=== PATIENT | male | born 1970 | race African-American/Black ===

== ENCOUNTER 2018-10-07 11:34 | Emergency (ER) | payer OTHER, SELFPAY ==
[2018-10-07] MEDS ORDERED: NA CHLORIDE 0.9% 1,000 ML ONE (12:10)
--- NOTE | 2018-10-07 12:19 | RAD REPORT ---
EXAM DESCRIPTION: RAD - Chest Single View - 10/07/2018 12:08 pm CLINICAL HISTORY: Dyspnea COMPARISON: None. TECHNIQUE: AP portable chest image was obtained 1206 hours . FINDINGS: Lungs are clear. Heart and vasculature are normal. No measurable pleural effusion and no p neumothorax. No acute bony abnormality seen. No acute aortic findings suspected. IMPRESSION: No acute cardiopulmonary process.
[2018-10-07 12:48] LABS: Absolute Lymphocytes (CBC) 1.2 K/uL (0.7-4.9); Absolute Monocytes 0.5 K/uL (0.1-1.3); Absolute Neutrophil 3.6 K/uL (1.8-8.0); Eosinophils % 5.7 % (0-4.4); Hematocrit 40.3 % (39.6-49.0); Lymphocytes % 21.8 % (15.3-44.8); MPV 9.1 fL (7.6-11.3); Monocytes % 8.2 % (3.3-12.3); RBC Red Blood Cell Count 4.58 M/uL (4.33-5.43)
[2018-10-07 12:49] LABS: Protime INR 1.15
[2018-10-07 13:06] LABS: BUN Blood Urea Nitrogen 12 mg/dL (7-18); Bicarbonate 28 mmol/L (21-32); Creatine Phosphokinase 376 U/L (39-308); Glucose Level 110 mg/dL (74-106); NT PRO-BNP 15 pg/mL (<125); Potassium 3.3 mmol/L (3.5-5.1); Sodium Level 141 mmol/L (136-145); Troponin (Emerg Dept Use Only) < 0.02 ng/mL (0.0-0.045)
--- NOTE | 2018-10-07 13:51 | EDPHYS ---
Physician Documentation [facility] Name: Toya Subramanian Age: 47 yrs Sex: Male : 1970 Arrival Date: 10/07/2018 Time: 11:35 Bed 6 Private MD: ED Physician Cyrus Linder HPI: 10/07 13:46 This 47 yrs old Black Male presents to ER via EMS with complaints of Shortness Of jr8 Breath. 13:46 Onset: The symptoms/episode began/occurred acutely, today. Duration: The symptoms are jr8 continuous, but are markedly better than the original presentation. The patient's shortness of breath is aggravated by exertion. Associated signs and symptoms: Pertinent positives: chest pain. Severity of symptoms: At their worst the symptoms were moderate in the emergency department the symptoms have resolved. The patient has not experienced similar symptoms in the past. The patient has not recently seen a physician. Patient stated that he was in a slick suit and SCBA along with harness going though a structure. Stated that while climbing everything felt tight and was giving him chest tightness and shortness of breath. Stated that it was also very hot. When symptoms started he went back down and took everything off. EMS arrived but felt much better. No asymptomatic at this time . Historical: - Allergies: 11:38 No Known Allergies; hj - Home Meds: 11:38 Lisinopril Oral [Active]; hj - PMHx: 11:38 Hypertension; Sleep Apnea; hj - PSHx: 11:38 None; hj - Immunization history:: Adult Immunizations not up to date. - Social history:: Smoking status: Patient/guardian denies using tobacco, Patient uses alcohol. - Ebola Screening: : Patient negative for fever greater than or equal to 101.5 degrees Fahrenheit, and additional compatible Ebola Virus Disease symptoms Patient denies exposure to infectious person Patient denies travel to an Ebola-affected area in the 21 days before illness onset. ROS: 13:46 Eyes: Negative for injury, pain, redness, and discharge, ENT: Negative for injury, jr8 pain, and discharge, Neck: Negative for injury, pain, and swelling, Abdomen/GI: Negative for abdominal pain, nausea, vomiting, diarrhea, and constipation, Back: Negative for injury and pain, MS/Extremity: Negative for injury and deformity, Skin: Negative for injury, rash, and discoloration, Neuro: Negative for headache, weakness, numbness, tingling, and seizure. 13:46 Cardiovascular: Positive for chest pain, Negative for edema, orthopnea, palpitations, paroxysmal nocturnal dyspnea. 13:46 Respiratory: Positive for shortness of breath, Negative for cough, dyspnea on exertion, sputum production, wheezing. Exam: 13:46 Eyes: Pupils equal round and reactive to light, extra-ocular motions intact. Lids and jr8 lashes normal. Conjunctiva and sclera are non-icteric and not injected. Cornea within normal limits. Periorbital areas with no swelling, redness, or edema. ENT: Nares patent. No nasal discharge, no septal abnormalities noted. Tympanic membranes are normal and external auditory canals are clear. Oropharynx with no redness, swelling, or masses, exudates, or evidence of obstruction, uvula midline. Mucous membranes moist. Neck: Trachea midline, no thyromegaly or masses palpated, and no cervical lymphadenopathy. Supple, full range of motion without nuchal rigidity, or vertebral point tenderness. No Meningismus. Cardiovascular: Regular rate and rhythm with a normal S1 and S2. No gallops, murmurs, or rubs. Normal PMI, no JVD. No pulse deficits. Respiratory: Lungs have equal breath sounds bilaterally, clear to auscultation and percussion. No rales, rhonchi or wheezes noted. No increased work of breathing, no retractions or nasal flaring. Abdomen/GI: Soft, non-tender, with normal bowel sounds. No distension or tympany. No guarding or rebound. No evidence of tenderness throughout. Back: No spinal tenderness. No costovertebral tenderness. Full range of motion. Skin: Warm, dry with normal turgor. Normal color with no rashes, no lesions, and no evidence of cellulitis. MS/ Extremity: Pulses equal, no cyanosis. Neurovascular intact. Full, normal range of motion. Neuro: Awake and alert, GCS 15, oriented to person, place, time, and situation. Cranial nerves II-XII grossly intact. Motor strength 5/5 in all extremities. Sensory grossly intact. Cerebellar exam normal. Normal gait. 13:50 ECG was reviewed by the Attending Physician. 8 Vital Signs: 11:39 BP 137 / 91; Pulse 78; Resp 18; Temp 98.2(O); Pulse Ox 98% on R/A; Weight 136.08 kg; hj Height 6 ft. 0 in. (182.88 cm); Pain 0/10; 12:30 BP 135 / 90; Pulse 81; Resp 18; Pulse Ox 100% on R/A; hj 13:25 BP 132 / 89; Pulse 85; Resp 18; Pulse Ox 96% on R/A; hj 14:09 BP 130 / 85; Pulse 80; Resp 18; Pulse Ox 100% on R/A; hj 11:39 Body Mass Index 40.69 (136.08 kg, 182.88 cm) MDM: 11:51 Patient medically screened. [facility] 13:46 Data reviewed: vital signs, nurses notes, lab test result(s), EKG, radiologic studies, [facility] plain films. Data interpreted: Pulse oximetry: on room air is 96 %. Interpretation: normal. Counseling: I had a detailed discussion with the patient and/or guardian regarding: the historical points, exam findings, and any diagnostic results supporting the discharge/admit diagnosis, lab results, radiology results, the need for outpatient follow up, a family practitioner, to return to the emergency department if symptoms worsen or persist or if there are any questions or concerns that arise at home. Response to treatment: the patient's symptoms have resolved after treatment, patient is well hydrated. 10/07 11:52 Order name: Basic Metabolic Panel; Complete Time: 13:10/07 11:52 Order name: CBC with Diff; Complete Time: 12:10/07 11:52 Order name: NT PRO-BNP; Complete Time: 13:10/07 11:52 Order name: PT-INR; Complete Time: 12:56 10/07 11:52 Order name: Troponin (emerg Dept Use Only); Complete Time: 13:10/07 11:52 Order name: CK; Complete Time: 13: 10/07 11:52 Order name: XRAY Chest (1 view); Complete Time: 12:24 10/07 11:52 Order name: EKG; Complete Time: 11:53 10/07 11:52 Order name: Cardiac monitoring; Complete Time: 12:02 10/07 11:52 Order name: EKG - Nurse/Tech; Complete Time: 12:02 jr8 05/26 11:52 Order name: IV Saline Lock; Complete Time: :10/07 11:52 Order name: Labs collected and sent; Complete Time: :10/07 11:52 Order name: O2 Per Protocol; Complete Time: :10/07 11:52 Order name: O2 Sat Monitoring; Complete Time: EC:50 Rate is 75 beats/min. Rhythm is regular, Normal Sinus Rhythm. QRS Neptune is Normal. [place] jr8 interval is normal at 184 msec. QRS interval is normal at 96 msec. QT interval is prolonged at 482 msec. No Q waves. T waves are Normal. No ST changes noted. Clinical impression: Normal ECG and No evidence of ischemia. Interpreted by me. Reviewed by me. Administered Medications: 12:04 Drug: NS 0.9% 1000 ml Route: IV; Rate: 1000 ml; Site: left forearm; aa5 13:30 Follow up: IV Status: Completed infusion; IV Intake: 1000ml hj Disposition: 10/07/18 13:50 Discharged to Home. Impression: Heat fatigue, transient, Shortness of breath. - Condition is Stable. - Discharge Instructions: Dehydration, Adult, Shortness of Breath, Fatigue. - Medication Reconciliation Form, Thank You Letter, Antibiotic Education, Prescription Opioid Use form. - Follow up: Private Physician; When: 2 - 3 days; Reason: Recheck today's complaints, Continuance of care, Re-evaluation by your physician. - Problem is new. - Symptoms have improved. Addendum: 10/09/2018 08:06 Co-signature as Attending Physician, Cyrus Linder MD I agree with the assessment and k dr plan of care. Signatures: Dispatcher [employer] EDDE Cyrus Linder MD MD [facility] Denisa Mckeon RN RN aa5 Juan Morales PA PA jr8 Hector Ponce RN RN hj Corrections: (The following items were deleted from the chart) 10/07 14:10 13:50 10/07/2018 13:50 Discharged to Home. Impression: Heat fatigue, transient; hj Shortness of breath. Condition is Stable. Forms are Medication Reconciliation Form, Thank You Letter, Antibiotic Education, Prescription Opioid Use. Follow up: Private Physician; When: 2 - 3 days; Reason: Recheck today's complaints, Continuance of care, Re-evaluation by your physician. Problem is new. Symptoms have improved. jr8
--- NOTE | 2018-10-07 13:51 | ER ---
Nurse's Notes [facility] Name: Toya Subramanian Age: 47 yrs Sex: Male : 1970 Arrival Date: 10/07/2018 Time: 11:35 Bed 6 Private MD: Diagnosis: Heat fatigue, transient;Shortness of breath Presentation: 10/07 11:35 Presenting complaint: EMS states: pt, working out [employer], on a shutdown, been working hj under a warm environment; been complaining of SOB; and been sweating a lot; reports feeling dehydrated; 20 g IV on L AC with NS 1L infusing; BP- 174/115; BGL- 123;. Transition of care: patient was not received from another setting of care. Onset of symptoms was October 07, 2018. Risk Assessment: Do you want to hurt yourself or someone else? Patient reports no desire to harm self or others. Initial Sepsis Screen: Does the patient meet any 2 criteria? No. Patient's initial sepsis screen is negative. Does the patient have a suspected source of infection? No. Patient's initial sepsis screen is negative. Care prior to arrival: None. 11:35 Method Of Arrival: EMS: [facility] 11:35 Acuity: GINNY 3 hj Historical: - Allergies: 11:38 No Known Allergies; hj - Home Meds: 11:38 Lisinopril Oral [Active]; hj - PMHx: 11:38 Hypertension; Sleep Apnea; hj - PSHx: 11:38 None; hj - Immunization history:: Adult Immunizations not up to date. - Social history:: Smoking status: Patient/guardian denies using tobacco, Patient uses alcohol. - Ebola Screening: : Patient negative for fever greater than or equal to 101.5 degrees Fahrenheit, and additional compatible Ebola Virus Disease symptoms Patient denies exposure to infectious person Patient denies travel to an Ebola-affected area in the 21 days before illness onset. Screenin:40 Abuse screen: Denies threats or abuse. Denies injuries from another. Nutritional hj screening: No deficits noted. Tuberculosis screening: No symptoms or risk factors identified. Fall Risk None identified. Assessment: 11:40 General: Appears in no apparent distress. comfortable, Behavior is calm, cooperative, hj appropriate for age. Pain: Denies pain. Neuro: Level of Consciousness is awake, alert, obeys commands, Oriented to person, place, time, situation, Appropriate for age. Cardiovascular: Capillary refill < 3 seconds Patient's skin is warm and dry. Respiratory: Airway is patent Respiratory effort is even, unlabored, Respiratory pattern is regular, symmetrical. GI: No signs and/or symptoms were reported involving the gastrointestinal system. : No signs and/or symptoms were reported regarding the genitourinary system. EENT: No signs and/or symptoms were reported regarding the EENT system. Derm: No signs and/or symptoms reported regarding the dermatologic system. Musculoskeletal: No signs and/or symptoms reported regarding the musculoskeletal system. Vital Signs: 11:39 BP 137 / 91; Pulse 78; Resp 18; Temp 98.2(O); Pulse Ox 98% on R/A; Weight 136.08 kg; hj Height 6 ft. 0 in. (182.88 cm); Pain 0/10; 12:30 BP 135 / 90; Pulse 81; Resp 18; Pulse Ox 100% on R/A; hj 13:25 BP 132 / 89; Pulse 85; Resp 18; Pulse Ox 96% on R/A; hj 14:09 BP 130 / 85; Pulse 80; Resp 18; Pulse Ox 100% on R/A; hj 11:39 Body Mass Index 40.69 (136.08 kg, 182.88 cm) hj ED Course: 11:35 Patient arrived in ED. jr8 11:35 Hector Ponce, RN is Primary Nurse. hj 11:37 Triage completed. hj 11:40 Arm band placed on right wrist. hj 11:41 Patient has correct armband on for positive identification. Placed in gown. Bed in low hj position. Call light in reach. Side rails up X 1. 11:51 Juan Morales PA is PHCP. jr8 11:51 Cyrus Linder MD is Attending Physician. jr8 12:00 Initial lab(s) drawn, by me, sent to lab. aa5 12:02 EKG done, by ED staff, reviewed by Juan BURNHAM. jb1 12:06 XRAY Chest (1 view) In Process Unspecified. EDMS 14:08 No provider procedures requiring assistance completed. IV discontinued, intact, hj bleeding controlled, No redness/swelling at site. Pressure dressing applied. Administered Medications: 12:04 Drug: NS 0.9% 1000 ml Route: IV; Rate: 1000 ml; Site: left forearm; aa5 13:30 Follow up: IV Status: Completed infusion; IV Intake: 1000ml hj Intake: 13:30 IV: 1000ml; Total: 1000ml. heike Outcome: 13:50 Discharge ordered by MD. uribe 14:09 Discharged to home ambulatory. heike 14:09 Condition: stable 14:09 Discharge instructions given to patient, Instructed on discharge instructions, follow up and referral plans. Demonstrated understanding of instructions, follow-up care. 14:10 Patient left the ED. heike Signatures: Dispatcher [employer] EDMS Antonio Vicente jb1 Denisa Mckeon, RN RN aa5 Juan Morales PA PA jr8 Hector Ponce, RN RN
--- NOTE | 2018-10-08 07:55 | EKG ---
Test Date: 2018-10-07 Test Time: 11:58:40 Line Assembler: HERMINIA MEASUREMENT RESULTS: Intervals: Rate: 75 [place]: 184 QRSD: 96 QT: 432 QTc: 482 [place]: P: 33 [place]: 184 QRS: 61 T: 56 INTERPRETIVE STATEMENTS: Normal sinus rhythm Prolonged QT Abnormal ECG Compared to ECG 05/13/2011 04:22:47 Prolonged QT interval now present T-wave abnormality no longer present Possible ischemia no longer present Electronically Signed On 10-08-18 07:53:46 CDT by Donavan Cardona
== END 2018-10-07 14:10 | disposition home or self-care (01) ==
LOC: ER 11:34
DX: T67.6XXA Heat fatigue, transient, initial encounter (principal); R06.02 Shortness of breath; I10 Essential (primary) hypertension
CPT/HCPCS: 36415; 71045; 80048; 82550; 83880; 84484; 85025; 85610; 93005; 96360; 99284; J7030

== ENCOUNTER 2022-03-18 00:28 | Inpatient (IN) | payer OTHER, SELFPAY ==
--- OUTSIDE RECORDS SUMMARY | 2022-03-18 00:30 | XMS REPORT | Continuity of Care Document ---
:1970 Author Organization [facility] t Address [address] [place] [address] Care Team Providers Name Role Phone Jody Lang Primary Care Physician [phone] Problems This patient has no known problems. Allergies, Adverse Reactions, Alerts This patient has no known allergies or adverse reactions. Medications Ordered Filled Start Stop Current Ordering Indication Dosage Frequency Signature Comments Components Source Medication Medication Date Date Medication? Clinician (SIG) Name Name TAKE 1 2021-05 No 25 TABLET 0-24 EVERY 00:00: MORNING. 00 Dose 2021-0 No Unknown 4-22 00:00: 00 Dose 2021-0 No Unknown 4-22 00:00: 00 Dose 2-0 No Unknown 4-22 00:00: 00 Dose 2-0 No Unknown 4-22 00:00: 00 Dose 2-0 No Unknown 4-22 00:00: 00 Dose 2-0 No Unknown 4-22 00:00: 00 Dose 2-0 No Unknown 4-22 00:00: 00 Dose 2021-0 No Unknown 4-22 00:00: 00 Dose 2-0 No Unknown 4-22 00:00: 00 Dose 2-0 No Unknown 4-22 00:00: 00 Dose 2-0 No Unknown 4-22 00:00: 00 Dose 2022-0 No Unknown 4-22 00:00: 00 Dose 2-0 No Unknown 4-22 00:00: 00 Dose 2-0 No Unknown 4-22 00:00: 00 Dose 2-0 No Unknown 4-22 00:00: 00 Dose 2-0 No Unknown 4-22 00:00: 00 Dose 2-0 No Unknown 4-22 00:00: 00 Dose 2-0 No Unknown 4-22 00:00: 00 Dose 2022-0 No Unknown 4-22 00:00: 00 Dose 2022-0 No Unknown 4-22 00:00: 00 Dose 2022-0 No Unknown 4-18 00:00: 00 Dose 2022-0 No Unknown 4-18 00:00: 00 Dose 2022-0 No Unknown 4-18 00:00: 00 Dose 2022-0 No Unknown 4-18 00:00: 00 Dose 2022-0 No Unknown 4-18 00:00: 00 Dose 2022-0 No Unknown 4-18 00:00: 00 Dose 2022-0 No Unknown 4-18 00:00: 00 Dose 2022-0 No Unknown 4-18 00:00: 00 glimepiride 2-0 No 1mg 4 mg tablet 3-05 00:00: 00 atorvastati 2-0 No 1mg n 20 mg 3-05 tablet 00:00: 00 Dose 2022-0 No Unknown 3-04 00:00: 00 Dose 2022-0 No Unknown 3-04 00:00: 00 Dose 2022-0 No Unknown 3-04 00:00: 00 Dose 2022-0 No Unknown 3-04 00:00: 00 Dose 2022-0 No Unknown 3-04 00:00: 00 Dose 2022-0 No Unknown 3-04 00:00: 00 Dose 2022-0 No Unknown 3-04 00:00: 00 Dose 2022-0 No Unknown 3-04 00:00: 00 Dose 2022-0 No Unknown 3-04 00:00: 00 Dose 2022-0 No Unknown 3-04 00:00: 00 Dose 2022-0 No Unknown 3-04 00:00: 00 Dose 2022-0 No Unknown 3-04 00:00: 00 Dose 2022-0 No Unknown 3-04 00:00: 00 Dose 2022-0 No Unknown 3-04 00:00: 00 Dose 2022-0 No Unknown 3-04 00:00: 00 Vital Signs Vital Name Observation Time Observation Value Comments Source BP Systolic 2021-07-16 10:01:00 157 mm[Hg] BP Diastolic 2021-07-16 10:01:00 105 mm[Hg] Weight Measured 2021-07-16 10:01:00 292.80 pounds Height Measured 2021-07-16 10:01:00 71.85 inches Body Temperature 2021-07-16 10:01:00 97.20 degrees Heart Rate 2021-07-16 10:01:00 96.00 /min Respiratory Rate 2021-07-16 10:01:00 Procedures This patient has no known procedures. Plan of Care Planned Activity Planned Date Details Comments Source Goal Plan of Care Note [code = 97298-0] Goal Plan of Care Note [code = 72914-9] Goal Plan of Care Note [code = 38311-3] Goal Plan of Care Note [code = 27125-3] Encounters Start End Encounter Admission Attending Care Care Encounter Source Date/Time Date/Time Type Type Clinicians Facility Department ID 2022-03-07 2022-03-07 Outpatient [id number] 00:00:00 00:00:00 Visit [id number] Results Test Description Test Time Test Comments Results Result Comments Source HEMOGLOBIN A1c 2021-07-17 05:00:27 Test Item Value Reference Range Interpretation Comme nts HEMOGLOBIN A1c (test code = 9.6 % 4.2-5.6 H [employer] 59810) GUIDELINES FOR HGB A1C: PREDIABETES/INC REASED RISK . . . . . . . 5.7-6.4% DIAGNO SIS OF DIABETES . . . . . . . . . >=6.5% WITH CONFIRMATION OR APPROPRIATE SYM PTOMS NOTE: ASSAY MAY BE AFFECTED BY HEM OGLOBINOPATHIES (SICKLE CELL ANEMIA, S- C DISEASE, OTHERS) OR ARTIFICIALLY LO WERED BY DECREASED RED CELL SURVIVAL ( HEMOLYTIC ANEMIAS, BLOOD LOSS, ETC.). CO NSIDER ALTERNATE TESTING OR LABORATORY C ONSULTATION. LIPID [id number] 04:34:34 Test Item Value Reference Range Interpretation Comments CHOLESTEROL (test 162 MG/DL <200 code = 2210) TRIGLYCERIDES (test 188 MG/DL <150 H code = 2232) HDL CHOLESTEROL (test 38 MG/DL >39 L code = 2220) CALC LDL CHOL (test 96 MG/DL <100 NOTE: C ALCULATED LDL code = 2237) IS BASED ON NIMA-HAMILTON METHOD WHICHINCLUDES ADJUSTABLE TRIGLYCERIDE:VL DL CHOLESTEROL RAT IO.THIS FACTOR VARIES B Y MEASURED TRIGLY CERIDE AND NON-HDLCHOL ESTEROL CONCENTRATIONS WITH INCREASED CALCU LATED LDL SEENIN HIGH ER TRIGLYCERIDE OR LOWER NON-HDL SPECIME NS. FOR MOREINFORMATION , SEE CLIENT ANNOUNCE MENT AT [email or web address] RISK RATIO LDL/HDL 2.53 RATIO <3.55 (test code = 2238) COMPREHENSIVE METABOLIC [id number] 04:34:34 Test Item Value Reference Range Interpretation Comments GLUCOSE (test code = 145 MG/DL 70-99 H 2216) BUN (test code = 10 MG/DL 6-20 2207) CREATININE (test 1.08 MG/DL 0.80-1.40 code = 221) eGFR (2020 CKD-EPI) 84 >60 (test code = 87630) ML/MIN/1.73 CALC BUN/CREAT (test 9 RATIO 6-28 code = 2235) SODIUM (test code = 143 MEQ/L 348-946 6204) POTASSIUM (test code 4.0 MEQ/L 3.5-5.4 = 2227) CHLORIDE (test code 102 MEQ/L 95-107 = 2214) CARBON DIOXIDE (test 24 MEQ/L 19-31 code = 2206) CALCIUM (test code = 9.4 MG/DL 8.5-10.5 2208) PROTEIN, TOTAL (test 7.3 G/DL 6.1-8.3 code = 2229) ALBUMIN (test code = 4.5 G/DL 3.5-5.2 2200) CALC GLOBULIN (test 2.8 G/DL 1.9-3.7 code = 2240) CALC A/G RATIO (test 1.6 RATIO 1.0-2.6 code = 2234) BILIRUBIN, TOTAL 0.7 MG/DL See_Comment [Automated message] (test code = 2207) The syste m which generated this result transmitted ref erence range: <=1.2. T he reference range was not used to int erpret this result as normal/abnormal . ALKALINE PHOSPHATASE 131 U/L 40-118 H (test code = 2203) AST (test code = 21 U/L 9-50 2217) ALT (test code = 26 U/L 5-50 UNLESS OTH ERWISE 2218) INDICATED, ALL TESTING PERFORM [facility], [address] [place] [address] [facility] CHELY DIRECTOR: Donnie MARQUEZIA NUMBER [id number] [facility] ACCREDITATION N O. [id number] HEMOGLOBIN [id number] 00:00:00 Test Item Value Reference Range Interpretation Comments HEMOGLOBIN A1c (test code = 85040) 9.6 % HEMOGLOBIN [id number] 00:00:00 Test Item Value Reference Range Interpretation Comments HEMOGLOBIN A1c (test code = 56731) 9.6 % HEMOGLOBIN [id number] 00:00:00 Test Item Value Reference Range Interpretation Comments HEMOGLOBIN A1c (test code = 78110) 9.6 % LIPID [id number] 00:00:00 Test Item Value Reference Range Interpretation Comments CHOLESTEROL (test code = 2210) 162 MG/DL TRIGLYCERIDES (test code = 2232) 188 MG/DL HDL CHOLESTEROL (test code = 2220) 38 MG/DL CALC LDL CHOL (test code = 2237) 96 MG/DL RISK RATIO LDL/HDL (test code = 2.53 RATIO 2238) LIPID [id number] 00:00:00 Test Item Value Reference Range Interpretation Comments CHOLESTEROL (test code = 2210) 162 MG/DL TRIGLYCERIDES (test code = 2232) 188 MG/DL HDL CHOLESTEROL (test code = 2220) 38 MG/DL CALC LDL CHOL (test code = 2237) 96 MG/DL RISK RATIO LDL/HDL (test code = 2.53 RATIO 2238) COMPREHENSIVE METABOLIC [id number] 00:00:00 Test Item Value Reference Range Interpretation Comments GLUCOSE (test code = 2217) 145 MG/DL BUN (test code = 2208) 10 MG/DL CREATININE (test code = 2214) 1.08 MG/DL eGFR (2020 CKD-EPI) (test code 84 ML/MIN/1.73 = 53219) CALC BUN/CREAT (test code = 9 RATIO 2235) SODIUM (test code = 2231) 143 MEQ/L POTASSIUM (test code = 2228) 4.0 MEQ/L CHLORIDE (test code = 2215) 102 MEQ/L CARBON DIOXIDE (test code = 24 MEQ/L 2205) CALCIUM (test code = 2209) 9.4 MG/DL PROTEIN, TOTAL (test code = 7.3 G/DL 2228) ALBUMIN (test code = 2201) 4.5 G/DL CALC GLOBULIN (test code = 2.8 G/DL 2240) CALC A/G RATIO (test code = 1.6 RATIO 223) BILIRUBIN, TOTAL (test code = 0.7 MG/DL 2206) ALKALINE PHOSPHATASE (test 131 U/L code = 220) AST (test code = 2218) 21 U/L ALT (test code = 2219) 26 U/L COMPREHENSIVE METABOLIC [id number] 00:00:00 Test Item Value Reference Range Interpretation Comments GLUCOSE (test code = 2217) 145 MG/DL BUN (test code = 2208) 10 MG/DL CREATININE (test code = 2214) 1.08 MG/DL eGFR (2020 CKD-EPI) (test code 84 ML/MIN/1.73 = 34181) CALC BUN/CREAT (test code = 9 RATIO 2235) SODIUM (test code = 2231) 143 MEQ/L POTASSIUM (test code = 2228) 4.0 MEQ/L CHLORIDE (test code = 2215) 102 MEQ/L CARBON DIOXIDE (test code = 24 MEQ/L 2205) CALCIUM (test code = 2209) 9.4 MG/DL PROTEIN, TOTAL (test code = 7.3 G/DL 2228) ALBUMIN (test code = 2201) 4.5 G/DL CALC GLOBULIN (test code = 2.8 G/DL 2240) CALC A/G RATIO (test code = 1.6 RATIO 2234) BILIRUBIN, TOTAL (test code = 0.7 MG/DL 2206) ALKALINE PHOSPHATASE (test 131 U/L code = 220) AST (test code = 2218) 21 U/L ALT (test code = 2219) 26 U/L
[2022-03-18] MEDS ORDERED: NA CHLORIDE 0.9% 1,000 ML ONE (00:54)
[2022-03-18] MEDS ORDERED: ONDANSETRON 4 MG/2 ML VIAL ONE ×3 (00:54→16:05)
[2022-03-18] MEDS ORDERED: MORPHINE 4 MG/ML SYR ONE (00:54)
[2022-03-18 00:59] LABS: Absolute Lymphocytes (CBC) 1.6 K/uL (0.7-4.9); Lymphocytes % 23.5 % (15.3-44.8); MPV 8.2 fL (7.6-11.3); RBC Red Blood Cell Count 4.78 M/uL (4.33-5.43)
[2022-03-18 01:14] LABS: Albumin 3.6 g/dL (3.4-5.0); Bilirubin Total 0.6 mg/dL (0.2-1.0); Potassium 3.4 mmol/L (3.5-5.1); Protein, Total 7.4 g/dL (6.4-8.2)
--- NOTE | 2022-03-18 03:25 | ER ---
Nurse's Notes [facility] Name: Toya Subramanian Age: 51 yrs Sex: Male : 1970 Arrival Date: 03/18/2022 Time: 00:30 Bed 4 Private MD: Diagnosis: Abdominal pain, unspecified Presentation: 03/18 00:41 Chief complaint: Patient states: he is having severe abdominal pain after drinking bb alcohol tonight he also had the same type of episode last night but the pain only lasted about an hour currently pain is 10/10 denies vomiting or diarrhea. Coronavirus screen: At this time, the client does not indicate any symptoms associated with coronavirus-19. Ebola Screen: No symptoms or risks identified at this time. Initial Sepsis Screen: Does the patient meet any 2 criteria? No. Patient's initial sepsis screen is negative. Does the patient have a suspected source of infection? No. Patient's initial sepsis screen is negative. Risk Assessment: Do you want to hurt yourself or someone else? Patient reports no desire to harm self or others. Onset of symptoms was March 17, 2022. 00:41 Method Of Arrival: Ambulatory bb 00:41 Acuity: GINNY 3 bb Triage Assessment: 01:00 General: Appears in no apparent distress. uncomfortable, obese, Behavior is as6 cooperative. Pain: Complains of pain in umbilical area and left lower quadrant and right lower quadrant. EENT: No deficits noted. Neuro: No deficits noted. Cardiovascular: No deficits noted. Respiratory: Airway is patent Respiratory effort is even, unlabored, Respiratory pattern is regular, symmetrical. GI: Reports lower abdominal pain, upper abdominal pain. Historical: - Allergies: 00:43 No Known Allergies; bb - Home Meds: 00:43 Unable to obtain [Active]; bb - PMHx: 00:43 Hypertension; Sleep Apnea; Diabetes mellitus; bb - Immunization history:: Client reports receiving the 2nd dose of the Covid vaccine, Pfizer. - Social history:: Smoking status: Patient denies any tobacco usage or history of. Patient uses alcohol, weekly. Screenin:00 Abuse screen: Denies threats or abuse. Nutritional screening: No deficits noted. as6 Tuberculosis screening: No symptoms or risk factors identified. Fall Risk None identified. Assessment: 02:16 Reassessment: No changes from previously documented assessment. Patient and/or family vc1 updated on plan of care and expected duration. Pain level reassessed. 04:10 Reassessment: No changes from previously documented assessment. Patient and/or family as6 updated on plan of care and expected duration. Pain level reassessed. Patient is alert, oriented x 3, equal unlabored respirations, skin warm/dry/pink. Vital Signs: 00:41 BP 165 / 102; Pulse 93; Resp 18 S; Temp 97.8(O); Pulse Ox 97% on R/A; Weight 131.54 kg bb (R); Height 6 ft. 0 in. (182.88 cm) (R); Pain 10/10; 02:14 BP 172 / 109; Pulse 92; Pulse Ox 96% on 2 lpm NC; vc1 03:38 BP 159 / 105; Pulse 91; Resp 16 S; Pulse Ox 97% on R/A; as6 00:41 Body Mass Index 39.33 (131.54 kg, 182.88 cm) ED Course: 00:30 Patient arrived in ED. am2 00:32 Fernandez Martin PA is PHCP. jmm 00:32 Martín Chatterjee MD is Attending Physician. jm 00:43 Triage completed. bb 00:43 Arm band placed on Patient placed in an exam room, on a stretcher, on pulse oximetry. bb Family accompanied patient. 00:45 Inserted saline lock: 18 gauge in right antecubital area, using aseptic technique. as6 Blood collected. 00:52 CBC with Diff Sent. as6 00:52 CMP Sent. as6 00:52 Lipase Sent. as6 01:55 CT Abd/Pelvis - IV Contrast Only In Process Unspecified. EDMS 02:13 Eladia Salter, VERONICA is Primary Nurse. vc1 03:25 Pavan Christianson MD is Hospitalizing Provider. bs3 04:10 Patient has correct armband on for positive identification. Bed in low position. Call as6 light in reach. Pulse ox on. NIBP on. 04:49 No provider procedures requiring assistance completed. Patient admitted, IV remains in as6 place. Administered Medications: 00:59 Drug: NS 0.9% 1000 ml Route: IV; Rate: 1 bolus; Site: right antecubital; as6 04:47 Follow up: Response: No adverse reaction; IV Status: Completed infusion; IV Intake: as6 1000ml 00:59 Drug: Zofran (Ondansetron) 4 mg Route: IVP; Site: right antecubital; as6 04:46 Follow up: Response: No adverse reaction as6 01:00 Drug: morphine 4 mg Route: IVP; Infused Over: 4 mins; Site: right antecubital; as6 04:46 Follow up: Response: No adverse reaction as6 Medication: 04:49 VIS not applicable for this client. as6 Intake: 04:47 IV: 1000ml; Total: 1000ml. as6 Outcome: 03:25 Decision to Hospitalize by Provider. bs3 04:49 Admitted to Tele accompanied by tech, family with patient, via wheelchair, room 402, as6 with chart. 04:49 Condition: stable 04:49 Instructed on the need for admit. 04:52 Patient left the ED. as6 Signatures: Dispatcher [employer] EDMS Fernandez Martin PA PA jmm Ballard, Brenda, RN RN bb Luci Hightower amPeter Miner RN RN as6 Eladia Salter RN RN vc1 Martín Chatterjee MD MD bs3
--- NOTE | 2022-03-18 03:26 | EDPHYS ---
Physician Documentation [facility] Name: Toya Subramanian Age: 51 yrs Sex: Male : 1970 Arrival Date: 03/18/2022 Time: 00:30 Bed 4 Private MD: ED Physician Martín Chatterjee HPI: 03/18 00:44 This 51 yrs old Black Male presents to ER via Ambulatory with complaints of Abdominal jmm Pain. 00:44 The patient presents with abdominal pain. Onset: The symptoms/episode began/occurred jmm gradually, 2 day(s) ago. The symptoms do not radiate. This is a 51 year old male with a history of dm, htn that presents to the ED with complaints of lower abdominal pain. Symptoms began 2 days ago after drinking hennesy and sprite. Patient states the pain was so bad he had to leave a social event. Denies vomiting, diarrhea. patient states he has had normal bowel movements. Patient describes the pain as deep. Patient states he has had an umbilical hernia for the past 15 years which has never reduced. . Historical: - Allergies: 00:43 No Known Allergies; bb - Home Meds: 00:43 Unable to obtain [Active]; bb - PMHx: 00:43 Hypertension; Sleep Apnea; Diabetes mellitus; bb - Immunization history:: Client reports receiving the 2nd dose of the Covid vaccine, Apprema. - Social history:: Smoking status: Patient denies any tobacco usage or history of. Patient uses alcohol, weekly. ROS: 00:44 Constitutional: Negative for fever, chills, and weight loss, Cardiovascular: Negative jmm for chest pain, palpitations, and edema, Respiratory: Negative for shortness of breath, cough, wheezing, and pleuritic chest pain. 00:44 Abdomen/GI: Positive for abdominal pain. 00:44 All other systems are negative. Exam: 00:44 Constitutional: This is a well developed, well nourished patient who is awake, alert, jmm and in no acute distress. Head/Face: atraumatic. Eyes: EOMI, no conjunctival erythema appreciated ENT: Moist Mucus Membranes Neck: Trachea midline, Supple Chest/axilla: Normal chest wall appearance and motion. Cardiovascular: Regular rate and rhythm. No edema appreciated Respiratory: Normal respirations, no respiratory distress appreciated 00:44 Skin: General appearance color normal MS/ Extremity: Moves all extremities, no obvious deformities appreciated, no edema noted to the lower extremities Neuro: Awake and alert Psych: Behavior is normal, Mood is normal, Patient is cooperative and pleasant 00:44 Abdomen/GI: Inspection: obese Bowel sounds: normal, Palpation: soft, moderate abdominal tenderness, in the right lower quadrant and left lower quadrant, Hernia: noted in the umbilical area. Vital Signs: 00:41 BP 165 / 102; Pulse 93; Resp 18 S; Temp 97.8(O); Pulse Ox 97% on R/A; Weight 131.54 kg bb (R); Height 6 ft. 0 in. (182.88 cm) (R); Pain 10/10; 02:14 BP 172 / 109; Pulse 92; Pulse Ox 96% on 2 lpm NC; vc1 03:38 BP 159 / 105; Pulse 91; Resp 16 S; Pulse Ox 97% on R/A; as6 00:41 Body Mass Index 39.33 (131.54 kg, 182.88 cm) bb MDM: 00:38 Patient medically screened. [facility] 03:26 Data reviewed: nurses notes. [facility] 03/18 00:39 Order name: CBC with Diff; Complete Time: 01:05 [facility] 03/18 00:39 Order name: CMP; Complete Time: 01:16 [facility] 03/18 00:39 Order name: Lipase; Complete Time: 01:16 [facility] 03/18 00:39 Order name: CT Abd/Pelvis - IV Contrast Only [facility] 03/18 03:31 Order name: SARS RAPID; Complete Time: 04:28 [facility] 03/18 00:39 Order name: IV Saline Lock; Complete Time: 00:52 [facility] 03/18 00:39 Order name: Labs collected and sent; Complete Time: 00:52 [facility] Administered Medications: 00:59 Drug: NS 0.9% 1000 ml Route: IV; Rate: 1 bolus; Site: right antecubital; as6 04:47 Follow up: Response: No adverse reaction; IV Status: Completed infusion; IV Intake: as6 1000ml 00:59 Drug: Zofran (Ondansetron) 4 mg Route: IVP; Site: right antecubital; as6 04:46 Follow up: Response: No adverse reaction as6 01:00 Drug: morphine 4 mg Route: IVP; Infused Over: 4 mins; Site: right antecubital; as6 04:46 Follow up: Response: No adverse reaction as6 Disposition: 03:08 signed out pending reassesment and CT, ct concerning for possible incarceration around bs3 umbilical hernia and developing sbo adjacent to this, attempted to reduce at bedside, unable to reduce. Dr. Ferris consulted, rec to consult him and admit. . Disposition Summary: 03/18/22 03:25 Hospitalization Ordered Hospitalization Status: Inpatient Admission bs3 Provider: Pavan Christianson bs3 Location: Telemetry/MedSur (Inpatient) bs3 Condition: Stable bs3 Problem: new bs3 Symptoms: have worsened bs3 Bed/Room Type: Standard bs3 Room Assignment: 402(03/18/22 04:32) mw Diagnosis - Abdominal pain, unspecified bs3 Forms: - Medication Reconciliation Form bs3 - SBAR form bs3 Signatures: Dispatcher [employer] EDPaula Mcintyre RN RN mw Fernandez Martin PA PA jmm Ballard, Brenda, RN RN bb Peter Emmanuel RN RN as6 Martín Chatterjee MD MD bs3 Maria Eugenia Marquez PA-C PA-C sb4 Corrections: (The following items were deleted from the chart) 04:32 03:25 bs3 mw
--- NOTE | 2022-03-18 04:04 | P.HP ---
Certification for Inpatient Patient admitted to: Inpatient With expected LOS: <2 Midnights Patient will require the following post-hospital care: None Practitioner: I am a practitioner with admitting privileges, knowledge of patient current condition, hospital course, and medical plan of care. Services: Services provided to patient in accordance with Admission requirements found in Title 42 Section 412.3 of the Code of Federal Regulations Patient History Date of Service: 03/18/22 Reason for admission: Incarcerated Umbilical Hernia History of Present Illness: Patient is a 51 year old male with hypertension, type 2 diabetes, and NOMAN who presented to the ED with complaints of abdominal pain. He reports that he has had an umbilical hernia for about 15 years now and hasn't ever had an issue with. He states that the past two nights, when drinking alcohol, it has caused him severe abdominal pain. He is still passing gas and having small bowel moveme nts. Hernia could not be reduced in ED. CT abdomen pelvis showed "small umbilical hernia containing of knuckle of small bowel with trace associated free fluid, but no proximal bowel dilation to suggest obstruction. Suspected partial or early SBO in the right lower quadrant with fecalization of internal contents and a short segment measuring up to 3.7 cm in diameter." Labs without abnormalities. Vital signs stable. Dr. Ferris was contacted and will consult. He is admitted to hospitalist service. Home medications list reviewed: Yes - Past Medical/Surgical History Diabetic: Yes -: Type 2 Diabetes, Non-Insulin Dependent -: Hypertension -: Obstructive Sleep Apnea Past Surgical History: Patient denies surgical history Psychosocial/ Personal History: Patient lives at home with family. - Family History Father -: Cancer Mother -: Cancer - Social History Smoking Status: Current some day smoker Alcohol use: Yes CD- Drugs: No Caffeine use: Yes Place of Residence: Home Review of Systems Gastrointestinal: Abdominal Pain Physical Examination - Physical Exam General: Alert, In no apparent distress, Obese HEENT: Atraumatic, PERRLA, EOMI, Sclerae nonicteric Neck: Supple, 2+ carotid pulse no bruit, No LAD, Without JVD or thyroid abnormality Respiratory: Clear to auscultation bilaterally, Normal air movement Cardiovascular: Regular rate/rhythm, Normal S1 S2 Gastrointestinal: Tenderness Musculoskeletal: No tenderness Integumentary: No rashes Neurological: Normal gait, Normal speech, Normal strength at 5/5 x4 extr, Normal affect - Studies Laboratory Data (last 24 hrs) 03/18/22 00:50: Sodium 136, Potassium 3.4 L, BUN 15, Creatinine 1.27, Glucose 292 H, Total Bilirubin 0.6, AST 19, ALT 43, Alkaline Phosphatase 127 H, Lipase 88 03/18/22 00:50: WBC 6.70, Hgb 14.2, Hct 42.0, Plt Count 234 Assessment and Plan - Problems (Diagnosis) (1) Incarcerated umbilical hernia Current Visit: Yes Status: Acute (2) Partial small bowel obstruction Current Visit: Yes Status: Acute (3) Hypertension Current Visit: Yes Status: Chronic Qualifiers: Hypertension type: primary hypertension Qualified Code(s): I10 - Essential (primary) hypertension (4) Type 2 diabetes mellitus Current Visit: Yes Status: Chronic Qualifiers: Diabetes mellitus long term care phlebotomist insulin use: without custodial use Diabetes mellitus complication status: with hyperglycemia Qualified Code(s): E11.65 - Type 2 diabetes mellitus with hyperglycemia (5) Obstructive sleep apnea Current Visit: Yes Status: Chronic - Plan NPO in case for surgical intervention. Dr. Ferris consulting. Dixiesylui Glucose monitoring and control with sliding scale insulin Cardiology consulted for cardiac clearance- EKG and CXR ordered Pain control and antiemetics as needed CPAP at bedtime for sleep apnea Monitor and replete electrolytes per protocol Reconcile and continue home medications VTE prophylaxis Full code - Advance Directives Does patient have a Living Will: No Does patient have a Durable POA for Healthcare: No
[2022-03-18 04:19] LABS: SARS-CoV-2 Antigen Rapid Res Negative (Negative)
[2022-03-18 05:17] VITALS: BMI 39.3
[2022-03-18] MEDS: INSULIN -REGULAR HUMAN 50 UNIT/0.5 ML ML SQ SCH ×4 (06:00→21:49)
[2022-03-18] MEDS ORDERED: ONDANSETRON 4 MG/2 ML VIAL IV PRN (07:00)
--- NOTE | 2022-03-18 07:50 | RAD REPORT ---
EXAM DESCRIPTION: RAD - Chest Pa And Lat (2 Views) - 03/18/2022 6:03 am CLINICAL HISTORY: cardiac clearance COMPARISON: Chest Single View dated 10/07/2018 FINDINGS: Lines: None. Lungs: No evidence of edema or pneumonia. Pleural: No significant pleural effusions or pneumothorax. Cardiac: The heart size is within normal limits. Mediastinum: Within normal limits. Bones: No acute fractures. Other: None IMPRESSION: No acute cardiopulmonary disease.
[2022-03-18] MEDS: PIPER TAZO 3.375 GM in NA CHLORIDE 0.9% 100 ML IV SCH ×2 (08:10→16:48)
[2022-03-18] MEDS ORDERED: Ringers Lactate 1,000 ML IV ONE ×2 (12:51→14:55)
[2022-03-18] MEDS ORDERED: MIDAZOLAM HCL 2 MG/2 ML INJ ONE (13:01)
[2022-03-18] MEDS ORDERED: FENTANYL CITR 100 MCG/2 ML ONE (13:01)
[2022-03-18] MEDS ORDERED: propofoL 200 MG/20 ML VIAL IV ONE (13:01)
[2022-03-18] MEDS ORDERED: LIDOCAINE 2% MPF 5 ML VIAL ONE (13:01)
[2022-03-18] MEDS ORDERED: ROCURONIUM 50 MG/5 ML VIAL IV ONE (13:02)
[2022-03-18] MEDS ORDERED: KETOROLAC 30 MG/ML INJ ONE (14:59)
[2022-03-18] MEDS ORDERED: GLYCOPYRROLATE 0.2 MG/ML SYR ONE (15:00)
[2022-03-18] MEDS ORDERED: NEOSTIGMINE 1 MG/ML -5 ML ONE (15:09)
[2022-03-18] MEDS ORDERED: LABETALOL 20 MG/4ML SYRINGE IV ONE (15:09)
[2022-03-18] MEDS: LABETALOL HCL 100 MG/20 ML ONE ×2 (15:30→16:00)
--- NOTE | 2022-03-18 15:36 | RAD REPORT ---
EXAM DESCRIPTION: CT - Abdomen Pelvis W Contrast - 03/18/2022 1:53 am ADDENDUM #1 Addendum: Dr. Cleveland discussed these findings with Dr. Chatterjee via telephone at approximately 02:55 hours FOOD EQUIPMENT SERVICE TECHNICIAN on 05/18/2021. Electronically signed by: Reilly Cleveland MD 03/18/2022 2:59 AM CDT End of Addendum EXAM DESCRIPTION: CT Abdomen and Pelvis With Intravenous Contrast CLINICAL HISTORY: The patient is 51 years old and is Male; abdominal pain TECHNIQUE: Axial computed tomography images of the abdomen and pelvis with intravenous contrast. S agittal and coronal reformatted images were created and reviewed. This CT exam was performed using one or more of the following dose reduction techniques: automated exposure control, adjustment of t he mA and/or kV according to patient size, and/or use of iterative reconstruction technique. COMPARISON: 03/13/2013 CT abdomen pelvis without contrast FINDINGS: LUNG BASES: Unremarkable. No mass. No consolidation. ABDOMEN: LIVER: Diffuse hepatic steatosis with relative sparing noted along the gallbladder fossa. GALLBLADDER AND BILE DUCTS: Unremarkable. No calcified stones. No ductal dilation. PANCREAS: Unremarkable. No mass. No ductal dilation. SPLEEN: Unremarkable. No splenomegaly. ADRENALS: Unremarkable. No mass. KIDNEYS AND URETERS: Unremarkable. No solid mass. No hydronephrosis. STOMACH AND BOWEL: Small umbilical hernia containing a knuckle of small bowel with trace associated free fluid, but no proximal bowel dilatation to suggest obstruction. Several prominent loops of small bowel in the right lower quadrant (axial images 52-71 of 122 ), with fecalization of internal contents and a short segment measuring up to 3.7 cm in diameter. No portal or mesenteric venous gas. No pneumatosis. No associated mesenteric free fluid or significan t mesenteric stranding. Colonic diverticulosis. PELVIS: APPENDIX: No findings to suggest acute appendicitis. BLADDER: Unremarkable. No mass. REPRODUCTIVE: Unremarkable as visualized. ABDOMEN and PELVIS: INTRAPERITONEAL SPACE: No pneumoperitoneum. No significant fluid collection. BONES/JOINTS: No acute fracture. No dislocation. SOFT TISSUES: Small fat-containing supraumbilical midline ventral hernia. 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 No abdom inal aortic aneurysm. LYMPH NODES: Unremarkable. No enlarged lymph nodes. IMPRESSION: 1. Small umbilical hernia containing a knuckle of small bowel with trace associated fr ee fluid, but no proximal bowel dilatation to suggest obstruction. Recommend clinical correlation for reversibility, evidence of incarceration. 2. Suspected partial or early small bowel obstruction in the right lower quadrant (axial images 52-71 of 122), with fecalization of internal contents and a short segment measuring up to 3.7 cm in diamet er, possibly related to relative tethering from the nearby small bowel umbilical hernia. No pneumatos is or CT findings to suggest bowel ischemia at this time 3. 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 4. Hepatic steatosis. 5. Colonic diverticulosis. Electronically signed by: Reilly Cleveland MD 03/18/2022 2:51 AM CDT Due to temporary technical issues with the PACS/Fluency reporting system, reports are being signed by the in house radiologists without review as a courtesy to insure prompt reporting. The interpreting radiologist is fully responsible for the content of the report.
[2022-03-18] MEDS: HYDROMORPHONE HCL 1 MG/ML INJ ONE ×2 (16:05→16:10)
[2022-03-18] MEDS: MORPHINE 4 MG/ML SYR IV PRN ×2 (16:49→22:29)
--- NOTE | 2022-03-18 17:26 | P.BOP ---
Preoperative diagnosis: incarcerated umbilcal hernia with small bowel obstruction Postoperative diagnosis: same Primary procedure: Open repair of incarcerated umbilcal hernia Specimen: sac Findings: small bowel incarcerated, released, viable Anesthesia: General Transferred to: Recovery Room Condition: Good
[2022-03-18] MEDS ORDERED: INFLUENZA VACCINE (for 6+ mo) 0.5 ML DOSE IMVAC ONE (19:00)
--- NOTE | 2022-03-18 21:35 | CON ---
Date of Consultation: 03/18/2022 I saw the patient on 03/18/2022. Reason For Consultation: Cardiac clearance for hernia surgery by Dr. Ferris. History Of Present Illness: Mr. Subramanian is 51. Has no previous cardiac history. Has a history of h ypertension, diabetes, and sleep apnea, for which he does not wear a CPAP. Came in with an incarcera bravo hernia. Plan for surgery today. No cardiac complaint. Normal EKG. Normal chest x-ray. Mildly hypertensive at 159/105. Glucose was 392. Asymptomatic except for the hernia. Past Medical History: Negative. Review of Systems: Negative. Social History: Negative. Family History: Noncontributory. Medications: Listed by Dr. Christianson. Physical Examination: Vital Signs: Stable, afebrile. Sinus rhythm. Blood pressure is 159/105. Glucose is 392. HEENT: Negative. Neck: Supple with no bruit. Chest: Clear. Cardiac: Normal. Extremities: Revealed no clubbing, cyanosis, or edema. Impression And Plan: The patient with hypertension, diabetes, sleep apnea, obesity. He needs his bl ood pressure better controlled. EKG is unremarkable. Chest x-ray is unremarkable. No clinical evid ence of coronary artery disease or congestive heart failure by examination. No cardiac symptoms. I think he is at low risk for cardiac morbidity perioperatively. We will continue to follow him postop . Patient is cleared for surgery. Case was discussed with Dr. Ferris. CHRISS/EUGENIE Voice ID: [id number] Report ID: [id number]
--- NOTE | 2022-03-18 22:11 | CON ---
Date of Consultation: 03/18/2022 Reason For Service: Incarcerated with small bowel umbilical hernia. History Of Present Illness: This is the case of a 51-year-old patient who came a few hours ago with abdominal pain. He has a hernia there for about 15 years, but he has not been able to fix that. Thi s morning he developed this abdominal pain, came to the ER, and found to have a small bowel obstructi on with the incarcerated umbilical hernia. The patient was admitted to the hospital and a surgical c onsult was obtained. He denies any trauma and denies any recent travel to any country. He was advis ed the importance of colonoscopies. Past Medical History: Diabetes, hypertension, and sleep apnea. Past Surgical History: None. Family History: Cancer, he does not remember which kind of cancer. Social History: He smoked. He was advised the importance of cessation of smoking and he used alcoho l and importance also of cessation of that. Allergies: NONE. Review of Systems: See H and P. Ten points otherwise unremarkable. Physical Examination: General: The patient is awake and alert. Eyes: Pupils are equal and reactive. Anicteric. Neck: Supple. Chest: Clear. Heart: S1, S2. Abdomen: Softly distended with umbilical hernia present. No rebound. Extremities: Good capillary refill. Rectal: Deferred. Laboratory Data: Blood work shows WBC count of 6.7, hemoglobin of 14, hematocrit 42, and platelets o f 234. Potassium 3.4, creatinine is 1.27. Lipase 88. CAT scan of the abdomen and pelvis, official report still pending, but still it clearly shows the umbilical hernia with incarcerated small bowel c ausing small bowel obstruction. Assessment And Plan: This is the case of a 51-year-old patient with small bowel obstruction and inca rcerated umbilical hernia. The patient was emergently brought to the OR after fully explaining the b enefits, alternatives, and risks of repair of umbilical hernia and possible bowel resection, which in cluded, but not limited to infection, bleeding, damage to adjacent structures, anesthesia complicatio n, recurrence, myocardial infarction and even . He also understands this may not relieve his sy mptoms. He might need more than one surgical intervention. The OR was immediately called. The omer ent will sign a consent. JOSE MARIA/EUGENIE Voice ID: [id number] Report ID: [id number]
[2022-03-19] MEDS: PIPER TAZO 3.375 GM in NA CHLORIDE 0.9% 100 ML IV SCH ×3 (00:34→17:30)
[2022-03-19] MEDS ORDERED: HYDROMORPHONE HCL 1 MG/ML INJ IV ONE (00:40)
--- NOTE | 2022-03-19 01:32 | OP ---
Date of Procedure: 03/18/2022 Surgeon: Hector Ferris MD Preoperative Diagnosis: Incarcerated umbilical hernia with small bowel obstruction. Postoperative Diagnosis: Incarcerated umbilical hernia with small bowel obstruction. Procedure: Open repair of incarcerated umbilical hernia. Anesthesia: General plus local. Findings: The patient has small bowel loops trapped into this hernia. After fully inspecting and ad hesions removed, we took the bowel outside through the incision, inspected the bowel and it looks via ble with good peristalsis. After inspecting the small bowel, we proceeded to reduce it back into the abdominal cavity and it seemed to be viable. Complications: None. Estimated Blood Loss: Less than 10 cc. Indication: This is the case of a 51-year-old patient who comes to us with abdominal pain this morni ng. He had a hernia in the umbilical area for about 15 years, but he has not been able to fix that. The patient came with the small bowel loops trapped into this hernia with small bowel obstruction. The benefits, alternatives, and risks of repair were fully explained which include, but are not limit ed to infection, bleeding, damage to adjacent structures, anesthesia complication, recurrence, GA and even . He also understands this may not relieve any symptoms and he might need more than one s urgical intervention. He understands the importance of losing weight. May be some other hernias on the abdomen that may be addressed in the future. This is an emergency, we are going to try to save t he bowel. If we cannot save the bowel then he is going to have a bowel resection. He understood. Description Of Procedure: The patient was brought emergently to the operating room, placed in supine position. Anesthesia was done without complication. Abdominal area was prepped and draped in a britney rile fashion. A time-out was called. An incision was made in the periumbilical area. Incision was carried down. We were able to hold the tissue that is incarcerated. We did not want it to be reduce d since we would like to inspect it. We released and found out the hernia sac and then took the bowel and made sure we inspected the bowel extracorporeally. We pulled the loops of bowel and noticed it to be viable. The area that was that kinked showed no cyanosis. Once we released the adhesions hold ing that together, we were able to see proximal and distal flow. Once we inspected the area and made sure they had good peristalsis and no bleeding, we proceeded then to reduce it back into the abdomin al cavity. Fascial edges were cleaned and then we proceeded to close the area with a #1 PDS in a fig [id number] fashion multiple times. The area was irrigated. Hemostasis was obtained and 3-0 chromi c was done for subcutaneous tissue and skin with nomi. Sponge count and instrument counts were co rrect. Patient tolerated the procedure well. Patient was sent to recovery in stable condition. We are going to slowly advance diet and we have to remember this patient had small bowel obstruction, so we just want to give him clear liquid diet only and advance as tolerated depending on how he improve s clinically. There is always a chance for second look surgery if we see that clinically he is not i mproving. JOSE MARIA/EUGENIE Voice ID: [id number] Report ID: [id number]
[2022-03-19 04:27] LABS: Absolute Lymphocytes (CBC) 1.3 K/uL (0.7-4.9); Hematocrit 39.5 % (39.6-49.0); Lymphocytes % 19.9 % (15.3-44.8); MCV 87.4 fL (80-100); MPV 8.2 fL (7.6-11.3); RBC Red Blood Cell Count 4.51 M/uL (4.33-5.43)
[2022-03-19 04:50] LABS: Magnesium 1.6 mg/dL (1.8-2.4); Phosphorus 3.4 mg/dL (2.5-4.9); Potassium 3.3 mmol/L (3.5-5.1); Thyroid Stimulating Hormone 1.3 uIU/mL (0.360-3.740)
[2022-03-19 05:24] VITALS: O2SAT 95
[2022-03-19] MEDS ORDERED: POTASSIUM CL SA 10 MEQ TAB PO ONE ×2 (05:25→06:30)
[2022-03-19] MEDS: MORPHINE 4 MG/ML SYR IV PRN ×3 (06:16→15:42)
[2022-03-19] MEDS: INSULIN -REGULAR HUMAN 50 UNIT/0.5 ML ML SQ SCH ×3 (07:30→15:42)
[2022-03-19] MEDS ORDERED: MAGNESIUM SULFATE 1 gm IVPB 1 GM/100 ML BAG IV ONE (08:00)
[2022-03-19] MEDS ORDERED: HYDRALAZINE HCL 20 MG/ML VIAL IV ONE ×2 (12:07→15:22)
[2022-03-19] MEDS ORDERED: AMLODIPINE 10 MG TAB PO SCH (12:08)
[2022-03-19] MEDS ORDERED: METOPROLOL TAR 50 MG TAB PO SCH (12:09)
--- NOTE | 2022-03-19 15:28 | P.DS ---
Discharge Date: 03/19/22 Disposition: ROUTINE DISCHARGE Discharge Condition: GOOD Reason for Admission: Incarcerated Umbilical Hernia Brief History of Present Illness: Patient is a 51 year old male with hypertension, type 2 diabetes, and NOMAN who presented to the ED with complaints of abdominal pain. He reports that he has had an umbilical hernia for about 15 years now and hasn't ever had an issue with. He states that the past two nights, when drinking alcohol, it has caused him severe abdominal pain. He is still passing gas and having small bowel movements. Hernia could not be reduced in ED. CT abdomen pelvis showed "small umbilical hernia containing of knuckle of small bowel with trace associated free fluid, but no proximal bowel dilation to suggest obstruction. Suspected partial or early SBO in the right lower quadrant with fecalization of internal contents and a short segment measuring up to 3.7 cm in diameter." Labs without abnormalities. Vital signs stable. Dr. Ferris was contacted and will consult. He is admitted to hospitalist service. Hospital Course: Patient had surgical repair of incarcerated hernia. Patient is clinically doing well. Patient will discharge on a soft diet. Follow-up with general surgery in 1 to 2 weeks. Added hydralazine to her blood pressure medications as well. Vital Signs/Physical Exam: Temp Pulse Resp BP Pulse Ox 96.7 F L 80 14 189/117 H 96 03/19/22 12:00 03/19/22 12:21 03/19/22 12:00 03/19/22 12:21 03/19/22 12:00 General: Alert, In no apparent distress, Oriented x3 Laboratory Data at Discharge: WBC 6.70 K/uL (4.3-10.9) 03/19/22 03:59 Hgb 13.6 g/dL (13.6-17.9) 03/19/22 03:59 Hct 39.5 % (39.6-49.0) L 03/19/22 03:59 Plt Count 237 K/uL (152-406) 03/19/22 03:59 Sodium 135 mmol/L (136-145) L 03/19/22 03:59 Potassium 3.7 mmol/L (3.5-5.1) 03/19/22 12:15 BUN 9 mg/dL (7-18) 03/19/22 03:59 Creatinine 1.22 mg/dL (0.55-1.3) 03/19/22 03:59 Glucose 156 mg/dL (74-106) H 03/19/22 03:59 Phosphorus 3.4 mg/dL (2.5-4.9) 03/19/22 03:59 Magnesium 1.6 mg/dL (1.8-2.4) L 03/19/22 03:59 Total Bilirubin 0.6 mg/dL (0.2-1.0) 03/18/22 00:50 AST 19 U/L (15-37) 03/18/22 00:50 ALT 43 U/L (12-78) 03/18/22 00:50 Alkaline Phosphatase 127 U/L (45-117) H 03/18/22 00:50 Triglycerides 137 mg/dL (<150) 03/19/22 03:59 Cholesterol 126 mg/dL (<200) 03/19/22 03:59 HDL Cholesterol 42 mg/dL (40-60) 03/19/22 03:59 Cholesterol/HDL Ratio 3.00 03/19/22 03:59 Lipase 88 U/L (73-393) 03/18/22 00:50 Home Medications: Amlodipine [Norvasc*] 10 mg PO DAILY 03/19/22 Atorvastatin Calcium 20 mg PO DAILY 03/19/22 Glimepiride 4 mg PO DAILY 03/19/22 Hydralazine HCl 25 mg PO TID #90 tab 03/19/22 Hydrocodone 10/APAP 325 [[place] 10/325] 1 tab PO Q6H PRN #30 tab 03/19/22 Losartan Potassium [Cozaar*] 50 mg PO DAILY 03/19/22 Metoprolol Tartrate 100 mg PO DAILY 03/19/22 Mupirocin Oint [Bactroban 2% Ointment] 15 gm TP BID #1 ea 03/19/22 Pantoprazole [Protonix Tab*] 40 mg PO DAILY 03/19/22 Smz./Tmp. [Bactrim Ds 800 MG/160 MG] 1 each PO DAILY #7 tab 03/19/22 hydroCHLOROthiazide [Hydrochlorothiazide*] 25 mg PO DAILY 03/19/22 New Medications: Smz./Tmp. [Bactrim Ds 800 MG/160 MG] 1 each PO DAILY #7 tab Mupirocin Oint [Bactroban 2% Ointment] 15 gm TP BID #1 ea Hydralazine HCl 25 mg PO TID #90 tab Hydrocodone 10/APAP 325 [[place] 10/325] 1 tab PO Q6H PRN #30 tab PRN Reason: Pain Physician Discharge Instructions: -DC IV and DC home -Follow-up with PCP in 1 to 2 weeks -Follow-up with General surgeon, Dr. Ferris, in 1 to 2 weeks -Please call Dr. Christianson at [phone] if any questions regarding hospital stay -Please call nursing station at [phone] if any nursing or medication questions -Return to the emergency room if symptoms worsen Diet: Soft diet Activity: Fall precautions Followup: NONE,NONE [Primary Care Provider] - Time spent managing pt's care (in minutes): 35
[2022-03-19 16:31] VITALS: BP 127/70; TEMP 96.6
[2022-03-19] MEDS ORDERED: HYDRALAZINE HCL 20 MG/ML VIAL IV PRN (17:00)
[2022-03-20] MEDS ORDERED: hydroCHLOROthiazide 25 MG TAB PO SCH (09:00)
[2022-03-20] MEDS ORDERED: PANTOPRAZOLE 40MG TABLET PO SCH (09:00)
[2022-03-20] MEDS ORDERED: GLIMEPIRIDE 2 MG TABLET PO SCH (09:00)
[2022-03-20] MEDS ORDERED: LOSARTAN POTASSIUM 50 MG TABLET PO SCH (09:00)
[2022-03-20] MEDS ORDERED: ATORVASTATIN 20 MG TAB PO SCH (09:00)
== END 2022-03-19 18:18 | disposition home or self-care (01) | DRG 355 ==
LOC: ER 00:28 → ERHOLD 04:03 → 4TH 04:35
PROVIDERS: ADMIT Hospitalist; ATTEND Hospitalist
PROC: 0WQF0ZZ Repair Abdominal Wall, Open Approach (ICD-10-PCS; principal; 2022-03-18 13:30)
DX: K42.0 Umbilical hernia with obstruction, without gangrene (principal); I10 Essential (primary) hypertension; E11.65 Type 2 diabetes mellitus with hyperglycemia; G47.33 Obstructive sleep apnea (adult) (pediatric); Z79.84 Long term (current) use of oral hypoglycemic drugs; Z79.899 Other long term (current) drug therapy; Z20.822 Contact with and (suspected) exposure to COVID-19
CPT/HCPCS: 36415; 71046; 74177; 80048; 80053; 80061; 82947; 83690; 83735; 84100; 84132; 84443; 85025; 87811; 88302; 88304; 96361; 96374; 96375; 99285; J0360; J1170; J1815; J2001; J2250; J2405; J2543; J2704; J2710; J3010; J3475; J7030; J7120; Q9967